=== PATIENT | male | born 1955 ===

== ENCOUNTER 2018-02-20 06:03 | Day surgery (SDC) | payer MEDICARE, MEDICAID ==
[~2018-02-20] VITALS: Ht 170.2 cm; Wt 81.0 kg
[2018-02-20] VITALS (10 sets, daily range): BP systolic 94–112; BP diastolic 57–79
[2018-02-20] MEDS ORDERED: RENA-VITE TABL0.8 M1 PO (06:48)
[2018-02-20] MEDS ORDERED: PHOSLO PO (06:48)
[2018-02-20] MEDS ORDERED: VITAMIN D250000 UNI1 ORAL (06:48)
[2018-02-20] MEDS ORDERED: COREG12.5 MG ORAL (06:48)
[2018-02-20] MEDS ORDERED: TERAZOSIN HCL1 MG ORAL (06:48)
[2018-02-20] MEDS ORDERED: CARDURA4 MG ORAL (06:48)
[2018-02-20] MEDS ORDERED: LIPITOR40 MG ORAL (06:48)
[2018-02-20] MEDS ORDERED: RENVELA0.8 GM ORAL (06:48)
[2018-02-20] MEDS ORDERED: AMIODARONE HCL100 MG ORAL (06:48)
[2018-02-20] MEDS ORDERED: ASPIR 8181 MG ORAL (06:48)
[2018-02-20] MEDS ORDERED: Midazolam 2mg/2ml Inj ONE (07:00)
[2018-02-20] MEDS ORDERED: Vancomycin 1 GM in D5W 275 ML IVPB ONE (07:00)
[2018-02-20] MEDS ORDERED: fentaNYL 100 mcg/2 mL IV ONE (07:00)
[2018-02-20] MEDS ORDERED: ceFAZolin sod 1 GM in NS 55 ML IVPB ONE (07:00)
[2018-02-20] MEDS ORDERED: Lidocaine 1% MPF 10mg/ml 5ml ONE (07:01)
[2018-02-20] MEDS ORDERED: Propofol 200mg/20ml IV ONE (07:01)
[2018-02-20] MEDS ORDERED: Morphine Sulfate 10mg/ml Inj ONE (07:04)
[2018-02-20] MEDS ORDERED: Sodium Chloride 10ml vial INJ ONE (07:04)
[2018-02-20] MEDS ORDERED: NeoSporin Gu Irrig 1ml Amp IRRIG ONE (07:06)
[2018-02-20] MEDS ORDERED: Bacitracin 50000 Units Vial ONE (07:06)
[2018-02-20] MEDS ORDERED: Bacitracin Oint 15gm Tube TOPIC ONE (07:06)
[2018-02-20] MEDS ORDERED: Zemuron 50mg/5ml Inj IV ONE (07:16)
[2018-02-20] MEDS ORDERED: Succinylcholine 20mg/ml 10ml vial ONE (07:16)
[2018-02-20 07:27] LABS: ANION GAP 7 mmol/L (5-15); BLOOD UREA NITROGEN 28 mg/dL (7-18); CALCIUM 9.3 MG/DL (8.5-10.1); CARBON DIOXIDE 32 MMOL/L (21-32); CHLORIDE 98 MMOL/L (98-107); CREATININE 7.3 MG/DL (0.55-1.30); POTASSIUM 5.2 MMOL/L (3.5-5.1); SODIUM 137 MMOL/L (136-145)
--- NOTE | 2018-02-20 08:30 | Pre-Procedure Note/Attestation ---
Pre-Procedure Note/Attestation Complete Prior to Procedure Planned Procedure: not applicable Procedure Narrative: penile prosthesis Indications for Procedure Pre-Operative Diagnosis: organic impotence Attestation I attest that I discussed the nature of the procedure; its benefits; risks and complications; and alternatives (and the risks and benefits of such alternatives ), prior to the procedure, with the patient (or the patient's legal sales representative [employer]). I attest that, if there was a reasonable possibility of needing a blood transfusion, the patient (or the patient's legal sales representative [employer]) was given the [facility] standardized written summary, pursuant to the [place] Blood Safety Act ([place] Health and Safety Code # 1645, as amended). I attest that I re-evaluated the patient just prior to the surgery and that there has been no change in the patient's H&P, except as documented below: Gary Murray MD Feb 20, 2018 08:29
--- NOTE | 2018-02-20 08:48 | Anethesia Preoperative Eval ---
Anesthesia Pre-op PMH/ROS General Date of Evaluation: Feb 20, 2018 Time of Evaluation: 07:10 Anesthesiologist: Jan ASA Score: ASA 3 Mallampati Score Class I : Soft palate, uvula, fauces, pillars visible Class II: Soft palate, uvula, fauces visible Class III: Soft palate, base of uvula visible Class IV: Only hard plate visible Mallampati Classification: Class II Surgeon: Trevor Diagnosis: Erectaie disfunction Surgical Procedure: Penile prostesis placement Anesthesia History: none Family History: no anesthesia problems Allergies: Coded Allergies: No Known Allergies (Unverified , 02/20/18) Medications: see eMAR Patient NPO?: Yes Past Medical History Cardiovascular: Reports: HTN; Denies: CAD, ND, valve dz, arrhythmia, other Pulmonary: Denies: asthma, COPD, RAIMUDNO, other Gastrointestinal/Genitourinary: Reports: GERD, ESRD - on HD ast session 02/19/18 ; Denies: CRI, other Neurologic/Psychiatric: Reports: depression/anxiety; Denies: dementia, CVA, TIA, other Endocrine: Denies: DM, hypothyroidism, steroids, other HEENT: Denies: cataract (L), cataract (R), glaucoma, QAGAN TAYAGUNGIN (L), QAGAN TAYAGUNGIN (R), other Hematology/Immune: Reports: anemia - of chronic d-s; Denies: DVT, bleeding disorder, other Musculoskeletal/Integumentary: Denies: OA, RA, DJD, DDD, edema, other PMH Narrative: as above PSxH Narrative: Kidney transplant. A-V shunt placement, hernia repair Anesthesia Pre-op Phys. Exam Physician Exam Last Vital Signs Date Time Temp Pulse Resp B/P (MAP) Pulse Ox O2 Delivery O2 Flow Rate FiO2 02/20/18 06:49 98.9 77 20 112/79 97 Room Air Constitutional: NAD Neurologic: CN 2-12 intact Cardiovascular: RRR, no M/R/G Respiratory: CTA Gastrointestinal: S/NT/ND Airway Exam Mallampati Score: Class II MO: full Neck: flexible ROM: full Teeth: intact Dentures: no upper, no lower Anesthesia Pre-op A/P Labs Coagulation Test 02/20/18 06:38 Prothrombin Time 10.4 SEC (9.30-11.50) Prothromb Time International Ratio 1.0 (0.9-1.1) Activated Partial Thromboplast Time 27 SEC (23-33) Chemistry Test 02/20/18 06:38 Sodium Level 137 MMOL/L (136-145) Potassium Level 5.2 MMOL/L (3.5-5.1) H Chloride Level 98 MMOL/L (98-107) Carbon Dioxide Level 32 MMOL/L (21-32) Anion Gap 7 mmol/L (5-15) Blood Urea Nitrogen 28 mg/dL (7-18) H Creatinine 7.3 MG/DL (0.55-1.30) H Estimat Glomerular Filtration Rate 7.7 mL/min (>60) Glucose Level 86 MG/DL (74-106) Calcium Level 9.3 MG/DL (8.5-10.1) Studies Pre-op Studies: EKG - NSR Risk Assessment & Plan Assessment: ASA 3 Plan: GA with ETT Status Change Before Surgery: No Pre-Antibiotics Drug: Ancef 2gr. Gentamycin 80 mg. Given Within 1 Hr of Incision: Yes Time Given: 08:20 Ben Montoya MD Feb 20, 2018 08:48
[2018-02-20] MEDS ORDERED: Ketorolac 30mg Inj IV PRN (09:00)
[2018-02-20] MEDS ORDERED: DiphenhydrAMINE 50mg/ml Inj IVP PRN (09:00)
[2018-02-20] MEDS ORDERED: fentaNYL 100 mcg/2 mL IV PRN (09:00)
--- NOTE | 2018-02-20 09:57 | Brief Operative Note ---
Immediate Post Operative Note Operative Note Pre-op Diagnosis: organic impotence Procedure: IPP 3 pice Post-op Diagnosis: same Post-op Diagnosis: same as pre-op Surgeon: Ortega Murray Anesthesia: general Specimen: none Complications: none Condition: stable Fluids: 500 Estimated Blood Loss: minimal Implant(s) used?: Yes Gary Murray MD Feb 20, 2018 09:57
--- NOTE | 2018-02-20 10:12 | Immediate Post-Op Evaluation ---
Immediate Post-Op Evalulation Immediate Post-Op Evalulation Procedure: Penile prostesis placement Date of Evaluation: Feb 20, 2018 Time of Evaluation: 10:11 IV Fluids: 500 Blood Products: none` Estimated Blood Loss: <50 Urinary Output: none Blood Pressure Systolic: 104 Blood Pressure Diastolic: 58 Pulse Rate: 82 Respiratory Rate: 20 O2 Sat by Pulse Oximetry: 99 Temperature (Fahrenheit): 97.8 Pain Score (1-10): 1 Nausea: No Vomiting: No Complications none Patient Status: reacts, patent, extubated, none Hydration Status: adequate Ben Montoya MD Feb 20, 2018 10:12
--- NOTE | 2018-02-20 11:50 | 48 Hour Post Anesthesia Eval ---
Post Anesthesia Evaluation Procedure: Penile prostesis placement Date of Evaluation: Feb 20, 2018 Time of Evaluation: 11:48 Blood Pressure Systolic: 106 0: 72 Pulse Rate: 74 Respiratory Rate: 20 Temperature (Fahrenheit): 97.6 O2 Sat by Pulse Oximetry: 98 Airway: patent Nausea: No Vomiting: No Pain Intensity: 2 Hydration Status: adequate Cardiopulmonary Status: stable Mental Status/LOC: patient returned to baseline Follow-up Care/Observations: n/a Post-Anesthesia Complications: none Follow-up care needed: ready to discharge Ben Montoya MD Feb 20, 2018 11:50
--- NOTE | 2018-02-20 12:50 | Diagnostic Imaging Report ---
Indication: Cough Technique: One view of the chest Comparison: none Findings: No acute infiltrates, effusions, or congestion. Tortuous calcified aorta. Normal heart size. Upper mediastinum unremarkable. Impression: No acute process.
[2018-02-20] MEDS ORDERED: D5 1/2NS 1,000 ML IV SCH (14:01)
[2018-02-20] MEDS ORDERED: Norco 5mg/325mg tab ORAL PRN (14:01)
[2018-02-20] MEDS ORDERED: Tylenol #3 tab (300mg/30mg) ORAL PRN (14:01)
[2018-02-20] MEDS ORDERED: HYDROmorphone 1mg/ml Carpuject SUBQ PRN (14:01)
--- NOTE | 2018-02-20 16:45 | Operative Note - Dictated ---
DATE OF OPERATION: 02/20/2018 PREOPERATIVE DIAGNOSES: 1. Chronic renal failure. 2. Organic impotence. POSTOPERATIVE DIAGNOSES: 1. Chronic renal failure. 2. Organic impotence. OPERATION: Implantation of 3-piece penile prosthesis. OPERATED BY: Gary Murray M.D. ANESTHESIA: General. FINDINGS: Obstructed corpora. INDICATIONS FOR SURGERY: The patient has long-standing erectile dysfunction without any improvement with medications or any other manipulations. Treatment options were explained to him in great length including all potential complications and he agreed to the procedure and signed a consent. PROCEDURE IN DETAIL: He was brought to the operating room, placed in supine position, and prepped and draped in standard fashion. Penoscrotal incision, approximately 3 cm, was done and the corpora was mobilized on both sides preserving urethra with the Nolan catheter. Corpora was then opened approximately to 2 cm on each side and dilated to 12 Hegar dilator and measured to 20 cm in length. Three-piece 700 CX prosthesis was placed. Cylinders were placed into the corpora and the corpora was closed with a running 2-0 Vicryl suture. A 60 ml reservoir was placed in the retroperitoneal space through the transscrotal approach and left in place. Pump was placed into the subdartos position after blunt and sharp dissection. All components were reconnected using standard technique and tested prosthesis. Prosthesis functioned well. Wound was closed in three layers, subcuticular closure for the skin with Monocryl dressing. The patient tolerated procedure well. Sponge count and instrument count was correct. Gary Murray M.D. DR: [email or web address] JOB#: [id number] CC:
== END 2018-02-20 12:30 | disposition home or self-care (01) ==
LOC: SUR 06:03
DX: N52.9 Male erectile dysfunction, unspecified (principal); I12.0 Hypertensive chronic kidney disease with stage 5 chronic kidney disease or end stage renal disease; N18.6 End stage renal disease; Z99.2 Dependence on renal dialysis; Z94.0 Kidney transplant status; E78.5 Hyperlipidemia, unspecified; K21.9 Gastro-esophageal reflux disease without esophagitis; F32.9 Major depressive disorder, single episode, unspecified; F41.9 Anxiety disorder, unspecified; D64.9 Anemia, unspecified
CPT/HCPCS: 36415; 54405; 71045; 80048; 85610; 85730; C1813; J0330; J0690; J1580; J2250; J2270; J2704; J3010; 94003; 94150